=== PATIENT | male | born 1955 | race Caucasian/White ===

== ENCOUNTER 2024-03-02 10:53 | Emergency (ER) | payer MEDICARE, BC ==
[~2024-03-02] VITALS: Ht 177.8 cm; Wt 81.5 kg
[2024-03-02] MEDS: LidoCAINE 2% Topical Jelly 11mL syringe (UROJET) TOP ONE (11:15)
[2024-03-02] MEDS ORDERED: FLO0.4C PO (11:36)
[2024-03-02] MEDS ORDERED: LEVO-65 PO (11:36)
[2024-03-02 12:01] VITALS: BP 136/87; PULSE 89; RESP 18; TEMP 98.5; O2SAT 96
== END 2024-03-02 12:02 | disposition home or self-care (01) ==
LOC: ER 10:54
DX: R33.9 Retention of urine, unspecified (principal)
CPT/HCPCS: 51702; 99284; A4314; A4358

== ENCOUNTER 2024-03-10 08:24 | Emergency (ER) | payer MEDICARE, BC ==
[~2024-03-10] VITALS: Ht 182.9 cm; Wt 66.4 kg
[~2024-03-10 08:24] MED LIST: FLO0.4C PO; LEVO-65 PO
[2024-03-10 08:39] VITALS: BP 146/77; PULSE 67; RESP 18; TEMP 98; O2SAT 99
== END 2024-03-10 11:38 | disposition home or self-care (01) ==
LOC: ER 08:24
DX: R33.9 Retention of urine, unspecified (principal); Z46.6 Encounter for fitting and adjustment of urinary device
CPT/HCPCS: 99281

== ENCOUNTER 2024-03-10 12:21 | Emergency (ER) | payer MEDICARE, BC ==
[~2024-03-10] VITALS: Ht 182.9 cm; Wt 66.4 kg
[2024-03-10 12:38] VITALS: BP 148/78; PULSE 60; RESP 17; TEMP 97.8; O2SAT 99
== END 2024-03-10 15:48 | disposition home or self-care (01) ==
LOC: ER 12:21
DX: R33.9 Retention of urine, unspecified (principal); F03.90 Unspecified dementia, unspecified severity, without behavioral disturbance, psychotic disturbance, mood disturbance, and anxiety
CPT/HCPCS: 99283

== ENCOUNTER 2024-03-12 13:25 | Emergency (ER) | payer MEDICARE, BC ==
[~2024-03-12] VITALS: Ht 182.9 cm; Wt 66.7 kg
[~2024-03-12 13:25] MED LIST changes: -LEVO-65 PO
[2024-03-12 13:32] VITALS: TEMP 98
[2024-03-12 16:25] VITALS: BP 121/65; PULSE 67; RESP 16; O2SAT 96
[2024-03-12] MEDS ORDERED: CEPH-585 PO (16:25)
[2024-03-12 17:01] LABS: BILIRUBIN,URINE NEGATIVE (Neg); CLARITY,URINE CLEAR (Clear); COLOR,URINE STRAW (Yellow); GLUCOSE, URINE NEGATIVE (Neg); KETONES,URINE NEGATIVE (Neg); LEUKOCYTE ESTERASE ,URINE NEGATIVE (Neg); NITRITES, URINE NEGATIVE (Neg); OCCULT BLOOD,URINE NEGATIVE (Neg); PROTEIN,URINE NEGATIVE (Neg); UROBILINOGEN,URINE 0.2 E.U/dL (0.2-1.0)
[2024-03-12 17:07] LABS: UA COLLECTION TYPE URINAL
== END 2024-03-12 16:51 | disposition home or self-care (01) ==
LOC: ER 13:25
DX: R33.9 Retention of urine, unspecified (principal)
CPT/HCPCS: 51702; 81003; 99284; A4314